=== PATIENT | female | born 1980 ===

== ENCOUNTER 2021-03-29 05:50 | Day surgery (SDC) | payer OTHER ==
[~2021-03-29 05:50] MED LIST: PRENATAL PO
== END 2021-03-29 15:55 | disposition home or self-care (01) ==
LOC: CIR.AMB 05:50
PROVIDERS: ATTEND Obstetrics & Gynecology Maternal & Fetal Medicine
DX: O34.32 Maternal care for cervical incompetence, second trimester (principal); Z20.822 Contact with and (suspected) exposure to COVID-19

== ENCOUNTER 2021-09-16 16:59 | Inpatient (IN) | payer OTHER ==
[~2021-09-16] VITALS: Ht 167.6 cm; Wt 94.3 kg
== END 2021-09-18 08:11 | disposition home or self-care (01) | DRG 833 ==
LOC: LDR 16:59
PROVIDERS: ADMIT Obstetrics & Gynecology Maternal & Fetal Medicine; ATTEND Obstetrics & Gynecology Maternal & Fetal Medicine
PROC: 4A1HXCZ Monitoring of Products of Conception, Cardiac Rate, External Approach (ICD-10-PCS; principal; 2021-09-16)
DX: O34.33 Maternal care for cervical incompetence, third trimester (principal); Z3A.37 37 weeks gestation of pregnancy; Z20.822 Contact with and (suspected) exposure to COVID-19

== ENCOUNTER 2021-09-22 10:15 | Inpatient (IN) | payer OTHER ==
[~2021-09-22] VITALS: Ht 165.1 cm; Wt 94.8 kg
[2021-09-27] MEDS ORDERED: PRENATAL + DHA1 EAC1 PO (08:37)
== END 2021-09-29 13:30 | disposition home or self-care (01) | DRG 807 ==
LOC: OB/GYN 09-25 10:15 → LDR 09-27 05:31 → SURG-SUITE 09-27 11:55
PROVIDERS: ADMIT Obstetrics & Gynecology Maternal & Fetal Medicine; ATTEND Obstetrics & Gynecology Maternal & Fetal Medicine
PROC: 10E0XZZ Delivery of Products of Conception, External Approach (ICD-10-PCS; principal; 2021-09-27)
PROC: 0HQ9XZZ Repair Perineum Skin, External Approach (ICD-10-PCS; 2021-09-27)
PROC: 4A1HXCZ Monitoring of Products of Conception, Cardiac Rate, External Approach (ICD-10-PCS; 2021-09-27)
DX: O70.0 First degree perineal laceration during delivery (principal); Z37.0 Single live birth; Z3A.39 39 weeks gestation of pregnancy; Z20.822 Contact with and (suspected) exposure to COVID-19